=== PATIENT | female | born 1960 | race Two or more races ===

== ENCOUNTER 2021-07-24 01:42 | Inpatient (IN) | payer MEDICAID, OTHER ==
[~2021-07-24] VITALS: Ht 160 cm; Wt 87.1 kg
[2021-07-24] MEDS ORDERED: MORPHINE SULFATE 4 MG/ML SYR/VIAL IV ONE ×3 (02:45→05:45)
[2021-07-24] MEDS ORDERED: SODIUM CHLORIDE 0.9% 1,000 ML IV ONE ×3 (02:45→06:43)
[2021-07-24] MEDS ORDERED: ONDANSETRON HCL 4 MG/2 ML VIAL IV ONE (02:45)
[2021-07-24] MEDS ORDERED: IOHEXOL 300 MG/ML 100ML BOTTLE IJ ONE (03:41)
[2021-07-24 03:51] LABS: Basophils # (auto) 0 10 ^3/uL (0-0.2); Basophils % (auto) 0.5 % (0.0-2.0); Eosinophils # (auto) 0 10 ^3/uL (0-0.8); Eosinophils % (auto) 0.6 % (0.0-7.0); Hematocrit 36.7 % (36.0-46.0); Hemoglobin 12.4 g/dL (12.2-16.2); Lymphocytes # (auto) 0.7 10 ^3/uL (0.4-5.4); Lymphocytes % (auto) 9.7 % (10.0-50.0); Mean Corpuscular Hemoglobin 30.9 pg (28.0-32.0); Mean Corpuscular Hgb Conc. 33.8 g/dL (32.0-36.0); Mean Corpuscular Volume 91.3 fL (80.0-100.0); Monocytes # (auto) 0.6 10 ^3/uL (0-1.3); Monocytes % (auto) 7.8 % (0.0-12.0); Neutrophils # (auto) 5.8 10 ^3/uL (1.6-8.6); Neutrophils % (auto) 81.4 % (37.0-80.0); Red Blood Cells 4.02 10^6/uL (4.0-5.20); Red Cell Distribution Width 12.8 % (11.8-14.3); White Blood Cell 7.1 10^3/uL (4.4-10.8)
[2021-07-24 04:09] LABS: Alanine Aminotransferase 24 U/L (13-56); Albumin 3.6 g/dL (3.4-5.0); Anion Gap 12 (5-15); Aspartate Aminotransferase 15 U/L (15-37); BUN/Creatinine Ratio 16.9; Blood Urea Nitrogen 14 mg/dL (7-18); Calcium 8.9 mg/dL (8.5-10.1); Carbon Dioxide 25 mmol/L (21-32); Chloride 102 mmol/L (98-107); GFR African American 90 mL/min; GFR Non-African American 75 mL/min; Glucose 231 mg/dL (74-106); Lipase 138 U/L (73-393); Potassium 4.7 mmol/L (3.5-5.1); Sodium 139 mmol/L (136-145)
[2021-07-24 04:14] LABS: Alkaline Phosphatase 128 U/L (45-117); Bilirubin, Total 0.7 mg/dL (0.2-1.0); Total Protein 7.5 g/dL (6.4-8.2)
[2021-07-24] MEDS ORDERED: metroNIDAZOLE 500 MG TAB PO ONE (04:45)
[2021-07-24] MEDS ORDERED: CIPROFLOXACIN HCL 500 MG TAB PO ONE (04:45)
[2021-07-24] MEDS ORDERED: ACETAMINOPHEN 325 MG TAB PO ONE (05:45)
[2021-07-24 05:58] LABS: Urine Bacteria NONE SEEN /hpf (None Seen); Urine Blood Negative /uL (Negative); Urine WBC 1 /hpf (0 - 5)
[2021-07-24 06:19] LABS: Urine Specific Gravity > 1.050 (1.001-1.035)
[2021-07-24] MEDS ORDERED: DEXTROSE (50%) 50ML SYRG IV PRN (08:45)
[2021-07-24] MEDS ORDERED: traMADol HCL 50 MG TAB PO PRN (08:45)
[2021-07-24] MEDS ORDERED: cefTRIAXone 1GM/50ML D5W 50 ML IV ONE (08:45)
[2021-07-24] MEDS ORDERED: NITROGLYCERIN 0.4 MG SL TAB SL PRN (08:45)
[2021-07-24] MEDS ORDERED: MORPHINE SULFATE INJECTION 2 MG/ML SYRG IV PRN ×2 (08:45)
[2021-07-24] MEDS: InsuLIN REG 1unit/0.01ml Soln (100units/ml) SC SCH ×3 (11:30→22:00)
[2021-07-24] MEDS: cefTRIAXone 1GM/50ML D5W 50 ML IV SCH (11:52)
[2021-07-24] MEDS: ENOXAPARIN SOD 40 MG/0.4 ML SYRINGE SC SCH (11:53)
[2021-07-24] MEDS: ACCU-CHEK COMFORT CURVE STRIP VI SCH ×3 (11:56→22:00)
[2021-07-24] MEDS: PROMETHAZINE HCL 25 MG/ML 1ML IV PRN ×2 (12:41→23:05)
[2021-07-24] MEDS: SODIUM CHLORIDE 0.9% 1,000 ML IV SCH ×2 (13:36→18:50)
[2021-07-24] MEDS: ACETAMINOPHEN 500 MG TAB PO PRN (14:27)
[2021-07-24] MEDS: metroNIDAZOLE 500MG/100ML 100 ML IV SCH ×2 (14:37→22:00)
[2021-07-24 23:20] VITALS: BP 97/75
[2021-07-24 23:39] VITALS: BP 97/75
[2021-07-24] MEDS ORDERED: LOSA-69 PO (23:58)
[2021-07-24] MEDS ORDERED: LEVO125T7 PO (23:58)
[2021-07-24] MEDS ORDERED: METF-372 PO (23:58)
[2021-07-24] MEDS ORDERED: IBUP600T28 PO (23:58)
[2021-07-24] MEDS ORDERED: AMOX500C2 PO (23:58)
[2021-07-24] MEDS ORDERED: SIMV-8 PO (23:58)
[2021-07-24] MEDS ORDERED: ASPI-325 PO (23:58)
[2021-07-25] MEDS: SODIUM CHLORIDE 0.9% 1,000 ML IV SCH ×3 (02:00→12:15)
[2021-07-25 05:00] VITALS: BP 114/78
[2021-07-25 06:05] LABS: Basophils # (auto) 0 10 ^3/uL (0-0.2); Basophils % (auto) 0.3 % (0.0-2.0); Eosinophils # (auto) 0 10 ^3/uL (0-0.8); Eosinophils % (auto) 0.1 % (0.0-7.0); Hematocrit 32.6 % (36.0-46.0); Lymphocytes # (auto) 1.7 10 ^3/uL (0.4-5.4); Lymphocytes % (auto) 33.3 % (10.0-50.0); Mean Corpuscular Hgb Conc. 33.8 g/dL (32.0-36.0); Mean Corpuscular Volume 91.7 fL (80.0-100.0); Monocytes # (auto) 0.6 10 ^3/uL (0-1.3); Monocytes % (auto) 11.2 % (0.0-12.0); Neutrophils # (auto) 2.9 10 ^3/uL (1.6-8.6); Neutrophils % (auto) 55.1 % (37.0-80.0); Nucleated Red Blood Cells % 0.1 %; Red Blood Cells 3.56 10^6/uL (4.0-5.20); Red Cell Distribution Width 12.5 % (11.8-14.3); White Blood Cell 5.2 10^3/uL (4.4-10.8)
[2021-07-25] MEDS: metroNIDAZOLE 500MG/100ML 100 ML IV SCH ×3 (06:15→21:49)
[2021-07-25] MEDS: ACCU-CHEK COMFORT CURVE STRIP VI SCH ×4 (06:15→21:49)
[2021-07-25] MEDS: InsuLIN REG 1unit/0.01ml Soln (100units/ml) SC SCH ×4 (06:15→21:49)
[2021-07-25 06:22] LABS: Albumin 2.8 g/dL (3.4-5.0); Calcium 7.9 mg/dL (8.5-10.1); Potassium 3.8 mmol/L (3.5-5.1)
[2021-07-25 06:26] LABS: BUN/Creatinine Ratio 11.9; Bilirubin, Total 0.5 mg/dL (0.2-1.0); Total Protein 6.1 g/dL (6.4-8.2)
[2021-07-25] MEDS: ENOXAPARIN SOD 40 MG/0.4 ML SYRINGE SC SCH (08:48)
[2021-07-25] MEDS: cefTRIAXone 1GM/50ML D5W 50 ML IV SCH (08:49)
[2021-07-25] MEDS: ACETAMINOPHEN 500 MG TAB PO PRN (08:49)
[2021-07-25 09:00] VITALS: BP 101/54
[2021-07-25] MEDS ORDERED: SODIUM CHLORIDE 0.9% 500 ML IV ONE (12:00)
[2021-07-25 13:00] VITALS: BP 82/53
[2021-07-25 17:00] VITALS: BP 110/58
[2021-07-25 22:00] VITALS: BP 130/70
[2021-07-26] MEDS: SODIUM CHLORIDE 0.9% 1,000 ML IV SCH ×3 (01:35→15:24)
[2021-07-26 05:00] VITALS: BP 116/59
[2021-07-26] MEDS: ACCU-CHEK COMFORT CURVE STRIP VI SCH ×2 (06:19→11:30)
[2021-07-26] MEDS: InsuLIN REG 1unit/0.01ml Soln (100units/ml) SC SCH ×2 (06:19→11:30)
[2021-07-26] MEDS: metroNIDAZOLE 500MG/100ML 100 ML IV SCH ×2 (06:19→13:37)
[2021-07-26 09:00] VITALS: BP 124/69
[2021-07-26] MEDS: cefTRIAXone 1GM/50ML D5W 50 ML IV SCH (10:10)
[2021-07-26] MEDS: ENOXAPARIN SOD 40 MG/0.4 ML SYRINGE SC SCH (10:10)
[2021-07-26 13:00] VITALS: BP 144/69
[2021-07-26 17:00] VITALS: BP 116/69
== END 2021-07-26 17:00 | disposition home or self-care (01) | DRG 249 ==
LOC: ER 01:42 → TELE 08:42 → TELE-CENTR 23:02
PROVIDERS: ADMIT Internal Medicine; ATTEND Family Medicine
DX: A09 Infectious gastroenteritis and colitis, unspecified (principal); E03.9 Hypothyroidism, unspecified; E11.65 Type 2 diabetes mellitus with hyperglycemia; E66.01 Morbid (severe) obesity due to excess calories; Z68.33 Body mass index [BMI] 33.0-33.9, adult; E78.5 Hyperlipidemia, unspecified; E78.00 Pure hypercholesterolemia, unspecified; Z20.822 Contact with and (suspected) exposure to COVID-19; I10 Essential (primary) hypertension; Z80.0 Family history of malignant neoplasm of digestive organs; Z83.3 Family history of diabetes mellitus
CPT/HCPCS: 36415; 71045; 74177; 80053; 81001; 82150; 82962; 83036; 83690; 84484; 85025; 87426; 93005; 96361; 96365; 96372; 96375; 96376; G0378; J0696; J2405; J3490

== ENCOUNTER → 2024-04-11 | Outpatient (CLI) | payer MEDICAID ==
[~2024-04-11] MED LIST: AMOX500C2 PO; ASPI-325 PO; IBUP1TAB5 PO; LEVO125T7 PO; LOSA-534 PO; METF-372 PO; SIMV20TA20 PO
== END | disposition home or self-care (01) ==
LOC: XYW 08:23
DX: K31.89 Other diseases of stomach and duodenum (principal); K29.50 Unspecified chronic gastritis without bleeding; K64.9 Unspecified hemorrhoids; R10.13 Epigastric pain; R10.84 Generalized abdominal pain
CPT/HCPCS: 78264; A9541